=== PATIENT | male | born 1990 | race Caucasian/White ===

== ENCOUNTER 2022-10-18 16:34 | Outpatient (REF) | payer BC, SELFPAY ==
[2022-10-20 11:17] LABS: COVID-19 RT-PCR UVMMC Result Negative (Negative)
== END 2022-10-18 16:35 | disposition home or self-care (01) ==
LOC: LBN 16:34
PROVIDERS: Visit Provider Nurse Practitioner Family
DX: B34.9 Viral infection, unspecified (principal); Z20.822 Contact with and (suspected) exposure to COVID-19
CPT/HCPCS: 87637; U0003

== ENCOUNTER 2025-03-08 01:34 | Outpatient (CLI) | payer BC, SELFPAY ==
[2025-03-08 08:32] LABS: Glucose 93 mg/dL (74-106)
[2025-03-08 09:38] LABS: Calculated LDL 110 mg/dL (<100); Cholesterol 219 mg/dL (<200); HDL Cholesterol 40 mg/dL (>or=40); Triglyceride 345 mg/dL (<150)
== END 2025-03-08 01:35 | disposition home or self-care (01) ==
PROVIDERS: PCP Nurse Practitioner Family; Referring Provider Nurse Practitioner Family; Visit Provider Nurse Practitioner Family
DX: Z00.00 Encounter for general adult medical examination without abnormal findings (principal)
CPT/HCPCS: 36415; 80061; 82947